=== PATIENT | female | born 1965 | race Caucasian/White ===

== ENCOUNTER → 2017-10-22 15:04 | Outpatient (CLI) | payer OTHER, SELFPAY ==
--- NOTE | 2017-10-22 15:08 | RAD_ITS ---
STUDY: X-RAY CHEST REASON FOR EXAM: Female, 52 years old. Cough x4 weeks TECHNIQUE: PA and lateral views of the chest. COMPARISON: No recent studies FINDINGS: The lungs are clear and expanded. There is no demonstrated pleural abnormality. Normal size heart. Normal mediastinum and maureen. Normal visualized pulmonary arteries. Normal visualized aortic arch and descending thoracic aorta. Normal visualized thoracic spine. Normal visualized ribs, clavicles, and shoulders. There is no demonstrated abnormality of the visualized soft tissue structures of the upper abdomen. RAD/Chest PA and Lateral IMPRESSION: No acute pulmonary process Electronically Signed: Sanjay Nick MD at 16:07 EDT , Service support ,
--- NOTE | 2017-10-22 15:08 | RAD_ITS ---
STUDY: X-RAY - RIGHT HAND REASON FOR EXAM: Female, 52 years old. Pain after a fall TECHNIQUE: 3 view(s) of the hand. COMPARISON: None. FINDINGS: Normal radiocarpal articulation. Normal distal radioulnar joint. Normal visualized carpal bones. Normal carpal articulations Normal carpometacarpal articulation of the thumb. Normal second through fifth carpometacarpal joints. Normal metacarpi. Normal metacarpophalangeal joint of the thumb. Normal interphalangeal joint of the thumb. Normal proximal and distal phalanges of the thumb. Normal metacarpophalangeal joints of the second through fifth fingers. Normal proximal and distal interphalangeal joints of the second through fifth fingers. Normal phalanges of the second through fifth fingers. The soft tissue structures are unremarkable. RAD/Hand Min 3 Views IMPRESSION: Normal x-ray examination of the hand. Electronically Signed: Sanjay Nick MD at 16:08 EDT , Service support ,
== END ==
PROVIDERS: Family Provider Internal Medicine; PCP Internal Medicine; Visit Provider Internal Medicine
DX: M79.641 Pain in right hand (principal); R05 Cough
CPT/HCPCS: 71046; 73130

== ENCOUNTER → 2020-04-04 08:36 | Outpatient (CLI) | payer OTHER, SELFPAY | PROVIDERS: PCP Internal Medicine; Visit Provider Internal Medicine | DX: Z20.828 Contact with and (suspected) exposure to other viral communicable diseases (principal) | CPT/HCPCS: 87635; C9803; U0002 ==

== ENCOUNTER 2020-06-25 16:19 | Outpatient (RCR) | payer OTHER, SELFPAY ==
[2017-12-15 11:38] VITALS: BMI 40.8
[2020-06-25] MEDS: COVID-19 VACC, MRNA(PFIZER)/PF 30 MCG/0.3 ML SYRINGE IM (09:05)
[2020-07-16] MEDS: COVID-19 VACC, MRNA(PFIZER)/PF 30 MCG/0.3 ML SYRINGE IM (09:01)
== END 2020-09-17 23:59 ==
LOC: IMMUN 16:19
PROVIDERS: PCP Internal Medicine; Visit Provider Family Medicine
DX: Z23 Encounter for immunization (principal)
CPT/HCPCS: 0001A; 0002A; 91300

== ENCOUNTER → 2021-08-18 | Outpatient (CLI) | payer OTHER, SELFPAY ==
--- NOTE | 2021-08-18 13:29 | US_ITS ---
STUDY: THYROID ULTRASOUND REASON FOR EXAM: Female, 56 years old. THYROMEGALY TECHNIQUE: Ultrasound evaluation of the thyroid was performed with real-time and static shaw-scale imaging. COMPARISON: None. FINDINGS: RIGHT LOBE: The right lobe of the thyroid gland measures 4.5 cm x 1.7 cm x 1.9 cm. There is a homogeneous echotexture. There are no demonstrated solid, cystic or complex lesions. LEFT LOBE: The left lobe of the thyroid gland measures 3.8 cm x 1.8 cm x 1.6 cm. There is a homogeneous echotexture. There are no demonstrated solid, cystic or complex lesions. ISTHMUS: The isthmus measures 3 mm. The regional lymph nodes are normal. US/Thyroid IMPRESSION: Normal ultrasound examination of the thyroid. Electronically Signed: Chuy Briceno MD at 15:52 EDT ,
== END | disposition home or self-care (01) ==
LOC: US 13:26
PROVIDERS: PCP Internal Medicine; Referring Provider Internal Medicine; Visit Provider Internal Medicine
DX: E04.9 Nontoxic goiter, unspecified (principal)
CPT/HCPCS: 76536

== ENCOUNTER → 2021-08-21 | Outpatient (CLI) | payer OTHER, SELFPAY ==
[2021-08-21 10:19] LABS: Cholesterol 182 mg/dL (200); Free T3 2.7 pg/mL (2.18-3.98); High Density Lipoprotein 47 mg/dL; T4 Free Direct 1.07 ng/dL (0.76-1.46); Thyroid Stim Hormone (TSH) 2.76 uIU/mL (0.358-3.74); Triglycerides 145 mg/dL; Very Low Density Lipoprotein 29 mg/dL (5-40)
== END | disposition home or self-care (01) ==
PROVIDERS: PCP Internal Medicine; Referring Provider Internal Medicine; Visit Provider Internal Medicine
DX: E04.9 Nontoxic goiter, unspecified (principal); Z13.220 Encounter for screening for lipoid disorders
CPT/HCPCS: 36415; 80061; 84439; 84443; 84481

== ENCOUNTER → 2021-08-26 | Outpatient (CLI) | payer OTHER, SELFPAY ==
--- NOTE | 2021-08-26 16:00 | MRI_ITS ---
STUDY: MR Knee W/O Contrast 08/26/2021 5:02 PM REASON FOR EXAM: Female, 56 years old. Chronic RIGHT knee pain, medial TECHNIQUE: Standardized fat and water weighted pulse sequences were obtained in all 3 orthogonal planes. COMPARISON: xr 7.15.21 FINDINGS: Normal medial meniscus. Normal hyaline cartilage of the medial femorotibial compartment. There is moderate osteoarthritic spur formation of the medial knee compartment. Normal medial collateral ligamentous complex (MCL). Normal distal semimembranosus, gracilis and semitendinosus tendons. Normal lateral meniscus. Normal hyaline cartilage of the lateral femorotibial compartment. There is mild osteoarthritic spur formation of the lateral knee compartment. Normal proximal tibiofibular articulation. There is a partial sprain of the lateral collateral (fibular) ligament. Normal popliteus tendon. Normal biceps femoris tendon. Normal anterior cruciate ligament (ACL). Normal posterior cruciate ligament (PCL). Normal congruent patellofemoral articulation. Normal hyaline cartilage of the patellofemoral compartment. Normal medial and lateral patellar retinaculum. Normal quadriceps tendon. Normal patellar tendon. Normal Hoffa''s fat pad. There is a moderate volume joint effusion. The soft tissues are unremarkable. The otherwise visualized osseous structures are unremarkable. MRI/Lower Ext Joint Only (Routine) IMPRESSION: There is a moderate volume joint effusion. There is a partial sprain of the lateral collateral (fibular) ligament. Degenerative findings of the knee worse medially. Electronically Signed: Marshall Burris MD at 17:06 EDT Reading Location ID and State: [facility] / [place] , Service support ,
== END | disposition home or self-care (01) ==
LOC: MRI 15:33
PROVIDERS: PCP Internal Medicine; Visit Provider Internal Medicine
DX: M25.561 Pain in right knee (principal); G89.29 Other chronic pain
CPT/HCPCS: 73721

== ENCOUNTER 2021-09-16 09:30 | Outpatient (RCR) | payer OTHER, SELFPAY ==
--- NOTE | 2021-08-20 07:25 | HP.PTEVAL_ITS ---
Patient's Visit Information RAJ MCBRIDE is a 56 year old F referred to Physical Therapy by Dr. Mary Hanks DO with a diagnosis of Right Knee Pain. Date of Evaluation: 08/19/21 Physical Therapist: Radha Rojas DPT - Visit Plan Frequency: 2x /Week Duration: 4 Weeks Plan: Ultrasound- focus on LE and core strength/stabilization - Subjective Right Knee-2 year ago- she was [place]- stepped on a stone- went one way and the leg went the other - saw who told her to strengthen hips/knees due to being bone on bone. She is good as long as she is on even surfaces but when she is on uneven surfaces or sitting for long periods of time she has a hard time getting the knee working again. Saw Dr. Hanks who put her on Meloxicam and its feeling a lot better- least painful in the last 2 years. Sleep: was disturbed but is a little better when she gets up in the morning and to go to the bathroom. Did have an MRI ordered. Here until the then leaving for 2 weeks to [employer] in [place] ([employer] Did not have a cortisone injection. Pain is located in the medial aspect of the right knee. No radiating pain. Describes the pain as achy- sometimes more than others. Its really bad when its still for to long. Worst: 6/10 Agg: getting up from sitting for long periods of time, kneeling on her knee. Eases: Meloxicam, move it moves the better it feels. Best: 1-05/22. No N/T the LE. PMHx: none Meds: none - Objective Posture: FH, RS can correct but does not maintain throughout session. Gait: no deviation noted. HR/TR: able. Stairs: asc/desc 8 recip but reports when tired she does them non recip- also reports on uneven stairs (trails) she does non recip or does not attempt. SLS: 10-15 seconds then required to place other foot on the floor. Palpation: tender along medial joint line and along medial posterior knee. ROM: WFL in all planes. Strength: Core: fair, hip: 4/5 throughout, Knee: 4+/5, Ankle: 5/5. Flex: HS: moderate Gastroc: mild. - Special Tests R Knee Christiano - Meniscus: Positive R Knee Valgus - MCL: Positive R Knee Varus - LCL: Positive R Knee Patellar Grind - PFS: Positive - Balance/Special Test Scores Lower Extremity Functional Score: 62 - Goals Goal 1:: Patient will be I with HEP and progression Goal Time Frame: 4-6 Weeks Goal 2:: Patient will maintain proper posture t/o tx session to demo increased core s/s Goal Time Frame: 4-6 Weeks Goal 3:: Patient will SLS for 30 sec without LOB or hip drop Goal Time Frame: 4-6 Weeks Goal 4:: Patient will report 80% improvement Goal Time Frame: 4-6 Weeks - Rehabilitation Potential Physical Therapy Diagnosis: Patient presents with hypomobility-she has decreased LE and core strength/stabilization, flex, proprioception and muscular endurance leading to poor posture and increased pain with ADL's and recreational activities. Rehabilitation Potential: Good - Anticipated Interventions Patient/Client Instruction: Educate patient on: Benefits of Fitness Program Therapeutic Exercise to Include: Strength training, Power training, Endurance training, Balance training, Coordination, Agility training, Body mechanics, Postural training, Flexibilty training, Gait and locomotor training, Neuromotor development, Dynamic Lumbar Stabilization, Scapular Strength/Stabilization For the Purpose of:: To improve muscle performance and motor function IF ES: Yes Cryotherapy (ice pack, ice massage): Yes Thermo therapy (hot pack): Yes Ultrasound (thermal/non thermal): Yes Thank you for the opportunity to evaluate your patient. For Medicare and Medicare HMO plans, please review the plan of care and approve it. It will need to be FAXED BACK to us at [phone] for Medicare purposes. For Medicare only, by signing this I certify the plan of care. Please let me know if there are questions or concerns regarding this plan of care. Physician Signature: Date:
--- NOTE | 2022-02-11 09:51 | HP.PT.NRP ---
RAJ MCBRIDE was seen in my office for initial evaluation on 08/19/21. The following Plan of Care was established for this patient: Initial Frequency: 2x /Week Initial Duration: 4 Weeks Patient/Client Instruction: Educate patient on: Benefits of Fitness Program Therapeutic Exercise to Include: Strength training, Power training, Endurance training, Balance training, Coordination, Agility training, Body mechanics, Postural training, Flexibilty training, Gait and locomotor training, Neuromotor development, Dynamic Lumbar Stabilization, Scapular Strength/Stabilization For the Purpose of:: To improve muscle performance and motor function IF ES: Yes Cryotherapy (ice pack, ice massage): Yes Thermo therapy (hot pack): Yes Ultrasound (thermal/non thermal): Yes This patient was last seen in our office . Pertinent comments regarding their Physical therapy will appear below: Patient has not attended PT in over 30 days appropriate for d/c and return to MD for further evaluation PRN At this point I will be discontinuing this patient from physical therapy. I would be happy to see this patient again in the future if found appropriate by the physician. Thank you! Radha Rojas, [id number] Balance/Gait/Functional tests - Balance/Special Test Scores Lower Extremity Functional Score: 62
== END 2021-09-16 19:00 | disposition home or self-care (01) ==
LOC: PT 09:30
PROVIDERS: PCP Internal Medicine; Referring Provider Internal Medicine; Visit Provider Internal Medicine
DX: M17.11 Unilateral primary osteoarthritis, right knee (principal)
CPT/HCPCS: 97035; 97110; 97162

== ENCOUNTER 2021-09-25 07:26 | Day surgery (SDC) | payer OTHER, SELFPAY ==
[2021-09-25] VITALS (8 sets, daily range): BP systolic 87–106; BP diastolic 60–75; PULSE 63–83; RESP 16; TEMP 36.3–36.6; O2SAT 94–98; BMI 40.3
[2021-09-25] MEDS: Lactated Ringers 1,000 ML 15 ML IV (07:55)
--- NOTE | 2021-09-25 08:20 | PCM.HP.STD ---
[facility] - General General Date of Admission: 09/25/21 Date of Service: 09/25/21 Chief Complaint: Screening colonoscopy HPI Blessing MCBRIDE, is a 56 F who presents presents today for screening colonoscopy. She has a past medical history of thyromegaly, migraine disorder and osteoarthritis. She is not have any problems with her bowels. She does not have any abdominal pain or bloating. She does not have any nausea, vomiting or diarrhea. She does not have any bleeding per rectum. She does not have any family history of colorectal malignancy. Overall she is in fairly good health. [facility] Medical History (Updated 09/22/21 @ 14:58 by Rebecca Collins) Alcohol use Anxiety Arthritis Back pain Cough Dermatographia Hair loss History of edema History of pain when walking Injury of back Leg cramps Migraine Non-smoker Thyromegaly Wears contact lenses Whooping cough Home Medications glucosamine sulfate 750 mg tablet 750 mg PO DAILY 09/22/21 [History Last Taken Unknown] ibuprofen 600 mg tablet 600 mg PO Q8H PRN PRN 09/22/21 [History Last Taken Unknown] meloxicam 15 mg tablet 15 mg PO DAILY 09/22/21 [History Last Taken Unknown] Allergy/AdvReac Type Severity Reaction Status Date / Time ciprofloxacin [From Cipro] Allergy Severe Rash Verified 09/22/21 14:47 cephalexin monohydrate Allergy Unknown Verified 09/22/21 14:47 [From Keflex] Family History Mother Heart disease Father Heart disease Hyperlipidemia Cancer Grandfather Diabetes Heart disease Myocardial infarction Surgical History (Updated 09/22/21 @ 14:58 by Rebecca Collins) Fibroid tumor Hx of hand surgery S/P cholecystectomy tooth mohan implant Social History (Updated 12/15/17 @ 12:[address] Jonel Nettles, DO) Smoking Status: Never smoker alcohol intake: current alcohol intake frequency: holidays/special occasions only ROS Review of Systems ROS Unobtainable: other Constitutional Constitutional: Denies fatigue, fever(s), poor appetite, weight gain or weight loss ENT HEENT: Denies mouth lesions Cardiovascular Cardiovascular: Denies abdominal bloating, abdominal edema or abdominal pain Respiratory/Chest Respiratory/Chest: Denies change in mental status, change in phlegm color, chest congestion or chest tightness Gastrointestinal Gastrointestinal: Denies belching, bloating, change in bowel habits, change in stool character, chewing difficulty, coffee ground emesis, constipation, cramping, diarrhea, dyspepsia, dysphagia, early satiety, excessive flatus, fecal incontinence, heartburn, hematemesis, hematochezia, hemorrhoids, loose stools, melena, nausea, odynophagia, rectal bleeding, tenesmus, vomiting or weight changes Genitourinary Genitourinary: Denies abdominal discomfort, burning urination or itching Musculoskeletal Musculoskeletal: Reports as per HPI; Denies muscle weakness or myalgias Integumentary Integumentary: Denies jaundice Neurologic Neurologic: Denies lack of coordination or weakness Psychiatric Psychiatric: Denies confusion, depression, memory loss, mood swings, paranoia or suicidal ideation Endocrine Endocrinology: Denies systems reviewed and no addt'l complaints, except as documented Hematologic/Lymphatic Hematologic/Lymphatic: Denies anemia, easy bleeding, easy bruising or lymphadenopathy Allergic/Immunologic Allergic/Immunologic: Denies systems reviewed and no addt'l complaints, except as documented Vital Signs Vital Signs Vital Signs: 09/25/21 07:48 09/25/21 07:48 Temperature 97.8 F Temperature Source Temporal Pulse Rate 83 Respiratory Rate 16 Respiratory Pattern Normal Blood Pressure 93/73 Blood Pressure Mean 79 Blood Pressure Source Monitor Blood Pressure Position Sitting Blood Pressure Location Right Arm Pulse Ox 98 Oxygen Delivery Method Room Air Weight Weight: 253 lb 8.505 oz Body Mass Index (BMI) 40.3 Physical Exam Const alert General Appearance: cooperative Orientation / Consciousness: oriented to person HEENT hearing grossly normal bilaterally Head and Scalp: normal to inspection Face and Sinus: face symmetric Nose: external nose normal Mouth: oral and palatal mucosa normal Eyes conjunctivae normal General Eye: normal appearance of both eyes Neck full ROM General: normal visual inspection Lymph Lymphatic: no lymphadenopathy noted Chest inspection of chest normal and palpation of chest normal Chest: symmetrical chest wall rise Resp normal respiratory effort Effort and Inspection: able to speak in complete sentences Cardio regular rate GI non-distended Percussion: normal to percussion Rectal Exam: deferred Neuro Speech: speech normal Gait (Neuro): normal gait Assessment & Plan Assessment/Plan (1) Encounter for screening for malignant neoplasm of colon: PLAN: She will undergo colonoscopy. She was explained alternatives, risk, benefits including not withstanding bleeding, infection, sepsis, perforation, need for emergent surgery . She will have an ASA of 1.
--- NOTE | 2021-09-25 09:01 | OP.COLON_ITS ---
Patient Name: Audrey Vicente Procedure Date: 09/25/2021 8:30 AM Date of : 1965 Age: 56 Procedure: Colonoscopy Indications: Screening for colorectal malignant neoplasm Providers: Enrrique Henderson DO Referring MD: Enrrique Henderson DO Medicines: Monitored Anesthesia Care Patient Profile: This is a 56 year old female. Refer to note in patient chart for documentation of history and physical. Last Colonoscopy: none. The patient's first colonoscopy is today. Complications: No immediate complications. Procedure: Pre-Anesthesia Assessment: - Prior to the procedure, a History and Physical was performed, and patient medications and allergies were reviewed. The patient is competent. The risks and benefits of the procedure and the sedation options and risks were discussed with the patient. All questions were answered and informed consent was obtained. Patient identification and proposed procedure were verified by the physician in the pre-procedure area. Mental Status Examination: alert and oriented. Airway Examination: normal oropharyngeal airway and neck mobility. Respiratory Examination: clear to auscultation. CV Examination: normal. Prophylactic Antibiotics: The patient does not require prophylactic antibiotics. Prior Anticoagulants: The patient has taken no previous anticoagulant or antiplatelet agents. After reviewing the risks and benefits, the patient was deemed in satisfactory condition to undergo the procedure. The anesthesia plan was to use moderate sedation / analgesia (conscious sedation). Immediately prior to administration of medications, the patient was re-assessed for adequacy to receive sedatives. The heart rate, respiratory rate, oxygen saturations, blood pressure, adequacy of pulmonary ventilation, and response to care were monitored throughout the procedure. The physical status of the patient was re-assessed after the procedure. After I obtained informed consent, the scope was passed under direct vision. Throughout the procedure, the patient's blood pressure, pulse, and oxygen saturations were monitored continuously. The colonoscope was introduced through the anus and advanced to the cecum, identified by the appendiceal orifice, IC valve and transillumination. The colonoscopy was performed without difficulty. The patient tolerated the procedure well. The quality of the bowel preparation was good. Scope In: 8:39:54 AM Scope Withdrawal Time 0 hours 13 minutes 34 seconds Scope Out: 8:56:47 AM Total Procedure Duration Time 0 hours 16 minutes 53 seconds Findings: The perianal and digital rectal examinations were normal. The entire examined colon appeared normal on direct and retroflexion views. Impression: - The entire examined colon is normal on direct and retroflexion views. - No specimens collected. Recommendation: - Discharge patient to home. - Resume previous diet. - Continue present medications. - Repeat colonoscopy in 10 years for screening purposes. Procedure Code(s): --- Professional --- G0121, Colorectal cancer screening; colonoscopy on individual not meeting criteria for high risk CPT copyright 2017 [employer]. All rights reserved. The codes documented in this report are preliminary and upon manager pediatric review may be revised to meet current compliance requirements. Enrrique Henderson DO 09/25/2021 9:01:18 AM This report has been signed electronically. Number of Addenda: 1 Note Initiated On: 09/25/2021 8:30 AM Addendum Number: 1 Addendum Date: 01/13/2022 6:12:52 AM MAC was used as sedation for this procedure. Enrrique Henderson DO 01/13/2022 6:12:55 AM This report has been signed electronically.
--- NOTE | 2021-09-25 09:02 | OP.CCLET_ITS ---
01/13/2022 Mary Hanks [address] [place] [address] Re : Colonoscopy procedure for Audrey Vicente Dear Dr. Hanks This procedure was performed on September. My impressions and recommendations are as follows: Impressions : - The entire examined colon is normal on direct and retroflexion views. - No specimens collected. Recommendations : - Discharge patient to home. - Resume previous diet. - Continue present medications. - Repeat colonoscopy in 10 years for screening purposes. My findings are described in the full procedure note, which is enclosed. If I can be of further assistance, please feel free to contact me at . Sincerely, Enrrique Henderson, 09/25/2021 9:01:18 AM This report has been signed electronically.
== END 2021-09-25 09:54 | disposition home or self-care (01) ==
LOC: EN 07:26 → AC 07:28
PROVIDERS: PCP Internal Medicine; Referring Provider Internal Medicine Gastroenterology; Visit Provider Internal Medicine Gastroenterology
PROC: 0DJD8ZZ Inspection of Lower Intestinal Tract, Via Natural or Artificial Opening Endoscopic (ICD-10-PCS; CPT 45378; principal; 2021-09-25 08:25)
DX: Z12.11 Encounter for screening for malignant neoplasm of colon (principal); Z68.41 Body mass index [BMI] 40.0-44.9, adult; E66.9 Obesity, unspecified
CPT/HCPCS: G0121; J7120; J2405